=== PATIENT | male | born 1940 | race Caucasian/White ===

== ENCOUNTER 2017-06-23 16:23 | Emergency (ER) | payer OTHER ==
[~2017-06-23] VITALS: Ht 170.2 cm; Wt 75.0 kg
[2017-06-23 16:25] VITALS: BP 132/75; PULSE 86; RESP 16; TEMP 98.4; O2SAT 98
[2017-06-23] MEDS ORDERED: ONDANSETRON HCL 4 MG/2 ML VIAL IV PUSH ONE (17:00)
[2017-06-23] MEDS ORDERED: MORPHINE SULFATE 4 MG/ML INJ IV PUSH ONE ×2 (17:00→19:45)
--- NOTE | 2017-06-23 17:28 | RADRPT ---
EXAM DATE/TIME: 06/23/2017 17:06 [facility] COMPARISON: No previous studies available for comparison. INDICATIONS : Left wrist pain after fall today MEDICAL HISTORY : None. SURGICAL HISTORY : None. ENCOUNTER: Initial ACUITY: 1 day PAIN SCORE: 10/10 LOCATION: Left entire wrist FINDINGS: Slightly comminuted fracture of the ulnar styloid. Very subtle lucency involving the distal radius, l ikely projectional. Carpal bones appear intact joint spaces are maintained. Soft tissue prominence ov erlying the wrist. CONCLUSION: 1. Comminuted ulnar styloid fracture with likely projectional lucency involving the distal radius. Lenin Kathleen MD on June 23, 2017 at 17:25 Board Certified Radiologist. This report was verified electronically.
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
[2017-06-23] MEDS ORDERED: HYDR-3533 PO (18:51)
[2017-06-23] MEDS ORDERED: DICL75TA PO (18:51)
[2017-06-23 19:00] VITALS: BP 132/80; PULSE 64; RESP 18; O2SAT 98
[2017-06-23 19:57] LABS: AUTOMATED NEUTROPHIL # 6.7 TH/MM3 (1.8-7.7); BASOPHIL # 0.1 TH/MM3 (0-0.2); BASOPHIL % 0.7 % (0.0-2.0); EOSINOPHIL # 0.1 TH/MM3 (0-0.4); EOSINOPHIL % 0.9 % (0.0-4.0); HEMATOCRIT 43.9 % (39.0-51.0); HEMO FLAGS DIFF FINAL; LYMPH % 13.6 % (9.0-44.0); LYMPHOCYTE # 1.1 TH/MM3 (1.0-4.8); MEAN CELL VOLUME 88.1 FL (80.0-100.0); MEAN CORPUSCULAR HEMOGLOBIN 30.2 PG (27.0-34.0); MEAN CORPUSCULAR HGB CONC 34.3 % (32.0-36.0); MONO % 5.6 % (0.0-8.0); NEUT % 79.2 % (16.0-70.0); PLATELET COUNT 167 TH/MM3 (150-450); RED BLOOD COUNT 4.98 MIL/MM3 (4.50-5.90); WHITE BLOOD COUNT 8.4 TH/MM3 (4.0-11.0)
[2017-06-23 20:16] LABS: BICARBONATE 25.2 MEQ/L (21.0-32.0); MAGNESIUM 2.2 MG/DL (1.5-2.5); POTASSIUM 4.1 MEQ/L (3.5-5.1)
--- NOTE | 2017-06-23 20:30 | RADRPT ---
EXAM DATE/TIME: 06/23/2017 19:53 [facility] COMPARISON: No previous studies available for comparison. INDICATIONS : Trauma, fall. RADIATION DOSE: 32.95 CTDIvol (mGy) MEDICAL HISTORY : None SURGICAL HISTORY : None. ENCOUNTER: Initial ACUITY: 1 day PAIN SCALE: 5/10 LOCATION: cranial TECHNIQUE: Multiple contiguous axial images were obtained of the head. Using automated exposure control and adj ustment of the mA and/or kV according to patient size, radiation dose was kept as low as reasonably a chievable to obtain optimal diagnostic quality images. DICOM format image data is available electro nically for review and comparison. FINDINGS: CEREBRUM: The ventricles are normal for age. No evidence of midline shift, mass lesion, hemorrhage or acute in farction. No extra-axial fluid collections are seen. POSTERIOR FOSSA: The cerebellum and brainstem are intact. The 4th ventricle is midline. The cerebellopontine angle i s unremarkable. EXTRACRANIAL: The visualized portion of the orbits is intact. SKULL: The calvaria is intact. No evidence of skull fracture. CONCLUSION: 1. No acute findings. White matter ischemic changes. Incidental basal ganglia calcifications. Artemio Martins MD on June 23, 2017 at 20:28 Board Certified Radiologist. This report was verified electronically.
== END 2017-06-23 21:27 | disposition home or self-care (01) ==
LOC: NEPE 16:23
DX: S52.612A Displaced fracture of left ulna styloid process, initial encounter for closed fracture (principal); V79.9XXA Bus occupant (driver) (passenger) injured in unspecified traffic accident, initial encounter; Z79.899 Other long term (current) drug therapy
CPT/HCPCS: 29125; 70450; 73110; 80048; 83735; 85025; 96374; 96375; 96376; 99285; J2270; J2405

== ENCOUNTER 2017-07-11 12:34 | Emergency (ER) | payer OTHER ==
[~2017-07-11 12:34] MED LIST: DICL75TA PO; HYDR-3533 PO
[2017-07-11 12:37] VITALS: BP 130/84; PULSE 84; RESP 16; TEMP 98.4; O2SAT 98
--- NOTE | 2017-07-11 12:46 | PD ---
Physical Exam Date Seen by Provider: Jul 11, 2017 Time Seen by Provider: 12:43 Narrative 77-year-old male who fell and broke his left wrist on June 23. Patient states he is having ongoing left wrist pain. He is still wearing a splint applied on that date. Patient is not follow-up with orthopedist as he lost his paperwork, lost his cell phone, and has not had any contact for follow-up. His been taking some aspirin with mild improvement but is requesting something else for pain and follow-up appointment. Pain is currently 8 out of 10 is no known drug allergies. Data Data Last Documented VS Vital Signs Date Time Temp Pulse Resp B/P (MAP) Pulse Ox O2 Delivery O2 Flow Rate FiO2 07/11/17 12:37 98.4 84 16 130/84 (99) 98 MDM Medical Record Reviewed: Yes Supervised Visit with TRAE: Yes Narrative Course Patient is medically stable. Vital signs are stable. Patient awaiting bed placement. Condition: Stable Fidel Purcell Jul 11, 2017 12:46
== END 2017-07-11 14:20 | disposition left against medical advice (07) ==
LOC: NED 12:34
DX: S62.102D Fracture of unspecified carpal bone, left wrist, subsequent encounter for fracture with routine healing (principal); X58.XXXD Exposure to other specified factors, subsequent encounter; Z53.21 Procedure and treatment not carried out due to patient leaving prior to being seen by health care provider
CPT/HCPCS: 99281